=== PATIENT | female | born 1970 | race Hispanic/Latino ===

== ENCOUNTER → 2020-07-06 | Outpatient (CLI) | payer OTHER | END | disposition home or self-care (01) | LOC: SHCH 09:01 | PROVIDERS: ATTEND Internal Medicine Cardiovascular Disease | DX: R00.2 Palpitations (principal) | CPT/HCPCS: 93306; 93356 ==

== ENCOUNTER 2025-06-14 20:36 | Emergency (ER) | payer BC, OTHER ==
[~2025-06-14] VITALS: Ht 154.9 cm; Wt 59.4 kg
[2025-06-14 20:59] LABS: IMMATURE GRANULOCYTE ABSOLUTE 0.01 K/uL (0-1); NUCLEATED RED BLOOD CELLS 0.0 % (0.0-0.19); PLATELET COUNT (AUTO) 241 K/uL (130-400); RED BLOOD CELL COUNT(AUTO) 4.59 MIL/uL (4.00-5.50); RED CELL DISTRIBUTION WIDTH 13.5 % (11.0-15.5); WHITE BLOOD COUNT (AUTO) 4.8 K/uL (4.8-10.8)
[2025-06-14 21:07] LABS: ADD UA MICROSCOPIC YES; APPEARANCE,URINE CLEAR (CLEAR); GLUCOSE, URINE (UA) NEGATIVE (NEGATIVE); LEUKOCYTE ESTERASE ,URINE 25 Leu/uL (NEGATIVE); NITRATE,URINE NEGATIVE (NEGATIVE); OCCULT BLOOD,URINE LARGE (NEGATIVE)
[2025-06-14 21:09] LABS: CREATININE 0.6 mg/dL (0.5-1.0); GLOMERULAR FILTR. RATE CALC 105.0 mL/min (>90); GLUCOSE,RANDOM 108.0 mg/dL (70-105); SODIUM SERUM 132.0 mmol/L (136-145); UREA NITROGEN, BLOOD 14.0 mg/dL (7-18)
[2025-06-14 21:10] LABS: OTHER CASTS, URINE 1 /LPF (None Seen); SQUAMOUS EPITHELIAL CELL,UR RARE /HPF (0-2)
[2025-06-14 21:14] LABS: ASPARTATE AMINOTRANSFERASE 29.0 U/L (10-37); TOTAL PROTEIN, SERUM 7.3 g/dL (6.0-8.3)
--- NOTE | 2025-06-14 21:50 | ERN ---
ED Note History of Present Illness Stated Complaint: C/O ABD PAIN TO RIGHT SIDE, N X V X DIARRHEA Chief Complaint: Abdominal Pain Time Seen by MD: 20:43 Time Seen by Midlevel: 20:48 Dictation: 55-year-old female with a history of hypothyroidism coming in with complaints of diarrhea and right abdominal pain. Patient states she has right upper and right lower abdominal pain with four episodes of diarrhea, nonbloody, no melena. Denies any fever, nausea or vomiting. You states her only surgical history is hysterectomy Allergies: Coded Allergies: No Known Allergies (Unverified Allergy, Unknown, 06/14/25) Home Meds Active Scripts Naproxen (Naproxen) 375 Mg Tablet, 375 MG PO BID for 10 Days, #20 TAB 0 Refills Prov:JOSE ELIAS GUZMAN CHENCHO 06/14/25 Past Medical History Past Medical History: High Cholesterol, Hypothyroid Surgical History: Hysterectomy Review of System Dictation Constitutional: Negative for fever,chills, and weight loss Eyes: Negative for injury, pain,redness, and discharge ENT: Negative for injury,pain or swelling Cardiovascular: Negative for chest pain, palpitations, and edema Respiratory: Negative for shortness of breath, cough, and wheezing, Abdomen/GI: Positive for right upper and right lower abdominal pain with diarrhea Back: Negative for injury and pain : Negative for injury, bleeding and discharge MS/Extremity: Negative for injury and deformity Skin: Negative for rash, and discoloration Neuro: Negative for headache, weakness, numbness, tingling, and seizure Psych: Negative for suicide ideation, homicidal ideation, and hallucinations Review of Systems: was completed Initial Vital Sign VS Vital Signs Date Time Temp Pulse Resp B/P (MAP) Pulse Ox O2 Delivery O2 Flow Rate FiO2 06/14/25 20:38 98.1 64 20 140/86 100 Room Air 06/14/25 20:50 0 21 Physical Exam Dictation General: awake, alert, NAD Head/Face: Normocephalic, atraumatic Eyes: PERRL, EOMI, vision at baseline ENT: oral cavity clear, TMs clear, no signs of infection Neck: Trachea midline, supple, no nuchal rigidity Cardiovascular: RRR, normal S1/S2, No MRGs, no JVD Respiratory: CTAB, no respiratory distress, No rales or wheezes Abdomen: Soft, mild tenderness to the right lower quadrant, non-distended, normal bowel sounds, no guarding or rebound. Skin: Warm, dry, normal turgor, no rash MS/Extremity: Pulses equal, no cyanosis, neurovascular intact, FROM Neuro: COAx4, GCS 15, strength 5/5, CN 2-12 intact, normal cerebellar exam, normal gait, Psych: Normal behavior, mood, and affect normal Results (Laboratory/Radiology) Laboratory/Radiology Laboratory Tests Test 06/14/25 20:42 06/14/25 20:53 Urine Color YELLOW (YELLOW) Urine Appearance CLEAR (CLEAR) Urine pH 5.5 (5.0-8.0) Urine Specific [place] 1.026 (1.001-1.031) Urine Protein NEGATIVE mg/dL (NEGATIVE) Urine Glucose (UA) NEGATIVE mg/dL (NEGATIVE) Urine Ketones NEGATIVE mg/dL (NEGATIVE) Urine Occult Blood LARGE (NEGATIVE) H Urine Nitrate NEGATIVE (NEGATIVE) Urine Bilirubin NEGATIVE mg/dL (NEGATIVE) Urine Urobilinogen 0.2 mg/dL (0.2-1.0) Urine Leukocyte Esterase 25 Ilana/uL (NEGATIVE) H Urine RBC 26-50 /HPF (0-1) H Urine WBC 2-5 /HPF (0-1) H Urine Squamous Epithelial Cells RARE /HPF (0-2) Urine Bacteria RARE /HPF (None Seen) Urine Other Casts 1 /LPF (None Seen) White Blood Count 4.8 K/uL (4.8-10.8) Red Blood Count 4.59 MIL/uL (4.00-5.50) Hemoglobin 13.8 g/dL (12.0-16.0) Hematocrit 42.1 % (36-48) Mean Corpuscular Volume 91.7 fL (79-99) Mean Corpuscular Hemoglobin 30.1 pg (27.0-33.0) Mean Corpuscular Hemoglobin Concent 32.8 g/dL (32.0-36.0) Red Cell Distribution Width 13.5 % (11.0-15.5) Platelet Count 241 K/uL (130-400) Mean Platelet Volume 9.3 fL (7.5-10.5) Immature Granulocyte % (Auto) 0.2 % (0-1) Neutrophils (%) (Auto) 60.5 % (40.0-77.0) Lymphocytes (%) (Auto) 29.2 % (21.0-51.0) Monocytes (%) (Auto) 8.1 % (3.0-13.0) Eosinophils (%) (Auto) 1.4 % (0.0-8.0) Basophils (%) (Auto) 0.6 % (0.0-5.0) Neutrophils # (Auto) 2.9 K/uL (1.8-7.7) Lymphocytes # (Auto) 1.4 K/uL (1.0-4.8) Monocytes # (Auto) 0.4 K/uL (0.1-1.0) Eosinophils # (Auto) 0.07 K/uL (0.00-0.70) Basophils # (Auto) 0.03 K/uL (0.00-0.20) Absolute Immature Granulocyte (auto 0.01 K/uL (0-1) Nucleated Red Blood Cells 0.0 % (0.0-0.19) Sodium Level 132 mmol/L (136-145) L Potassium Level 3.4 mmol/L (3.5-5.1) L Chloride Level 97 mmol/L (101-111) L Carbon Dioxide Level 28 mmol/L (21-32) Blood Urea Nitrogen 14 mg/dL (7-18) Creatinine 0.6 mg/dL (0.5-1.0) Glomerular Filtration Rate Calc 105 mL/min (>90) Random Glucose 108 mg/dL (70-105) H Total Calcium 8.2 mg/dL (8.5-10.1) L Total Bilirubin 0.2 mg/dL (0.2-1.0) Direct Bilirubin 0.1 mg/dL (0.0-0.3) Aspartate Amino Transf (AST/SGOT) 29 U/L (10-37) Alanine Aminotransferase (ALT/SGPT) 35 U/L (12-78) Alkaline Phosphatase 75 U/L (50-136) Total Protein 7.3 g/dL (6.0-8.3) Albumin 3.4 g/dL (3.5-5.0) L Lipase 41 U/L (16-77) Labs Reviewed?: Yes CT Scan Comment: EXAM: CT Abdomen and Pelvis with IV contrast CLINICAL HISTORY: rlq pain TECHNIQUE: Axial computed tomography images of the abdomen and pelvis with intravenous contrast. CONTRAST: with intravenous contrast. COMPARISON: None provided. FINDINGS: LUNG BASES: The lung bases appear clear. No pleural effusions are seen. LIVER: Unremarkable. GALLBLADDER AND BILE DUCTS: The gallbladder appears within normal limits. No radioopaque gallstones are seen. No biliary ductal dilatation is evident. PANCREAS: Unremarkable. SPLEEN: Unremarkable. ADRENAL GLANDS: Unremarkable. KIDNEYS, URETERS, AND BLADDER: The kidneys appear within normal limits. There is no hydronephrosis or hydroureter. No urinary calculi are seen. STOMACH AND BOWEL: Thickening involving the ascending colon as well as the terminal ileum. There is transverse colon thickening also noted. Scattered sigmoid diverticula are seen. APPENDIX: No evidence of acute appendicitis on CT examination. PERITONEUM: No free fluid. No free air. LYMPH NODES: No lymphadenopathy is evident. REPRODUCTIVE: Unremarkable as visualized. VASCULATURE: No evidence of abdominal aortic aneurysm. BONES: No aggressive appearing osseous lesion. No acute osseous pathology evident. IMPRESSION: 1. Findings suggest terminal ileitis as well as extensive colitis affecting the ascending and transverse colon. ED Course ED Course Orders Procedure Category Date Status Time Cbc With Differential LAB 06/14/25 Complete 20:46 Basic Metabolic Panel LAB 06/14/25 Complete 20:46 Lipase LAB 06/14/25 Complete 20:46 Hepatic Function Panel LAB 06/14/25 Complete 20:46 Urinalysis Profile LAB 06/14/25 Complete 20:46 12 Lead Ekg Tracing- EKG 06/14/25 Logged Technical 20:46 0.9%Nacl 1000ml (Ns PHA 06/14/25 Complete 1000ml) 20:46 Ondansetron 4mg Inj PHA 06/14/25 Complete (Zofran 4mg Inj) 21:00 Famotidine 20mg Vial PHA 06/14/25 Complete (Pepcid 20mg Vial) 21:00 Ketorolac PHA 06/14/25 Complete Tromethamine 15mg/Ml 21:00 Ct Abdomen/Pelvis CT 06/14/25 Resulted W/Contrast 21:48 Iohexol (Omnipaque) PHA 06/14/25 Complete 21:53 Current Medications Medications (Trade) Dose Ordered Sig/Victor Manuel Route PRN Reason Start Time Stop Time Status Last Admin Dose Admin Famotidine (Pepcid 20mg Vial) 20 mg ONCE ONCE IV 06/14/25 21:00 06/14/25 21:01 DC 06/14/25 22:33 Iohexol (Omnipaque) 35,000 mg STK-MED ONCE IV 06/14/25 21:53 06/14/25 21:52 DC Ketorolac Tromethamine (toRADol) 15 mg ONCE ONCE IV 06/14/25 21:00 06/14/25 21:01 DC 06/14/25 22:33 Ondansetron HCl (zoFRAN 4MG INJ) 4 mg ONCE ONCE IVP 06/14/25 21:00 06/14/25 21:01 DC 06/14/25 22:33 Sodium Chloride 1,000 ml @ 1,000 mls/hr Q1H STAT IV 06/14/25 20:46 06/14/25 21:45 DC 06/14/25 22:32 Vital Signs Date Time Temp Pulse Resp B/P (MAP) Pulse Ox O2 Delivery O2 Flow Rate FiO2 06/14/25 20:50 98.2 69 19 142/85 98 Room Air* 0 21 06/14/25 20:38 98.1 64 20 140/86 100 Room Air Medical Decision Making MDM MDM: Differential diagnosis: Gastroenteritis, colitis, enteritis Rationale: Tests considered and ordered secondary to shared decision making include: labs, ECG and radiology Previous outside records reviewed: Old ER visits. Risk of complication and/or morbidity or mortality of patient management: None Medications-Per medication reconciliation Need for hospitalization: Patient does NOT meet criteria for hospitalization. Need for emergency major/minor surgery: No There are no social concerns with this patient. Prescription drug management Prescriptions will include symptomatic care Patient's prior external medical records from other ER visits were reviewed by me as indicated. Prior testing and results from previous visits were reviewed. Prior tests were taken into account with medical decision making and resource utilization, independent historian/historians were used to obtain complete medical history. I independently interpreted the test that were performed, results were reviewed by me and considered findings on radiology if ordered. Patient will be discharged. CT results show colitis. Advised to follow up with GI specialist, due for colonoscopy. Symptoms have improved at discharge DX & DISP Disposition: Discharge Departure Impression: Primary Impression: Colitis Additional Impressions: Diarrhea, Abdominal pain Condition: Stable Scripts Naproxen (Naproxen) 375 Mg Tablet 375 MG PO BID for 10 Days, #20 TAB 0 Refills Prov: JOSE ELIAS GUZMAN PAPER FOLDING MACHINE OPERATOR 06/14/25 Additional Instructions: Follow up GI specialist. FOLLOW-UP WITH YOUR PCP IN 24-72 HOURS AND IN THE EVENT IF SYMPTOMS WORSEN OR AN EMERGENCY OVERNIGHT REPORT TO THE ED IMMEDIATELY Referrals: ZOILA VELOZ (PCP) KALEB DE OLIVEIRA PAPER FOLDING MACHINE OPERATOR Jun 14, 2025 21:50 JOSE ELIAS GUZMAN Jun 14, 2025 23:24
[2025-06-14] MEDS ORDERED: IOHEXOL 350 MG/ML 100ML INFUS..BTL IV ONE (21:53)
[2025-06-14] MEDS: 0.9%NACL 1000ML 1,000 ML IV STA (22:32)
[2025-06-14] MEDS: FAMOTIDINE 20MG VIAL IV ONE (22:33)
--- NOTE | 2025-06-14 22:36 | HMCIMG ---
EXAM: CT Abdomen and Pelvis with IV contrast CLINICAL HISTORY: rlq pain TECHNIQUE: Axial computed tomography images of the abdomen and pelvis with intravenous contrast. CONTRAST: with intravenous contrast. COMPARISON: None provided. FINDINGS: LUNG BASES: The lung bases appear clear. No pleural effusions are seen. LIVER: Unremarkable. GALLBLADDER AND BILE DUCTS: The gallbladder appears within normal limits. No radioopaque gallstones are seen. No biliary ductal dilatation is evident. PANCREAS: Unremarkable. SPLEEN: Unremarkable. ADRENAL GLANDS: Unremarkable. KIDNEYS, URETERS, AND BLADDER: The kidneys appear within normal limits. There is no hydronephrosis or hydroureter. No urinary calculi are seen. STOMACH AND BOWEL: Thickening involving the ascending colon as well as the terminal ileum. There is transverse colon thickening also noted. Scattered sigmoid diverticula are seen. APPENDIX: No evidence of acute appendicitis on CT examination. PERITONEUM: No free fluid. No free air. LYMPH NODES: No lymphadenopathy is evident. REPRODUCTIVE: Unremarkable as visualized. VASCULATURE: No evidence of abdominal aortic aneurysm. BONES: No aggressive appearing osseous lesion. No acute osseous pathology evident. IMPRESSION: 1. Findings suggest terminal ileitis as well as extensive colitis affecting the ascending and transverse colon. /[place]
[2025-06-14 23:45] VITALS: BP 139/81; PULSE 65; RESP 19; TEMP 98.5; O2SAT 98
[2025-06-14] MEDS ORDERED: NAPR-1192 PO (23:46)
--- NOTE | 2025-06-15 04:34 | EKG ---
[facility] Test Date: 2025-06-14 Test Time: 20:51:46 Pat Name: BRAIN HART Department: [facility] Room: Gender: F Paramedic Rn: [id number] : 1970 Requested By: KALEB DE OLIVEIRA Order Number: [id number] Reading MD: Homar Trevino Measurements Intervals [place] Rate: 62 P: 47 MA: 190 QRS: 52 QRSD: 105 T: 65 QT: 436 QTc: 444 Interpretive Statements Sinus rhythm No previous ECG available for comparison Electronically Signed On 06-15-2025 07:05:15 CDT by Homar Trevino Please click the below link to view image of tracing.
== END 2025-06-14 23:54 | disposition home or self-care (01) ==
LOC: EDH 20:36
DX: K52.9 Noninfective gastroenteritis and colitis, unspecified (principal); E78.00 Pure hypercholesterolemia, unspecified; E03.9 Hypothyroidism, unspecified; Z90.710 Acquired absence of both cervix and uterus
CPT/HCPCS: 36415; 74177; 80048; 80076; 81001; 83690; 85025; 93005; 96361; 96365; 96374; 96375; 99284; J1885; J2405; J7030; Q9967; J1308